=== PATIENT | male | born 1990 | race Caucasian/White ===

== ENCOUNTER 2019-11-20 04:31 | Emergency (ER) | payer SELFPAY ==
[2019-11-20] MEDS ORDERED: Naloxone 0.4 MG/ML SDV IVPUSH ONE (04:53)
--- NOTE | 2019-11-20 04:54 | EDM.PDOCBH ---
<Anjum Armando - Last Filed: 11/20/19 06:30> ED HPI GENERAL MEDICAL PROBLEM - General Chief Complaint: Drug or Alcohol Abuse Stated Complaint: [facility] Time Seen by Provider: 11/20/19 04:35 Source of Information: Reports: EMS History Limitations: Reports: Altered Mental Status, Intoxication - History of Present Illness INITIAL COMMENTS - FREE TEXT/NARRATIVE: 29-year-old male brought in by EMS because of unresponsiveness, [place] that he collapsed and was unarousable. He tries to answer questions, he does understand because he shakes yes and no but he will not cooperate. He appears to have a sunburn or rash on his lower extremities and seemed uncomfortable and itchy so they gave him 25 mg of IV Benadryl in route to the hospital. They did check a glucose and it was over 200. 500 cc bolus of fluid was given, no other treatment so far. There is no outward evidence of trauma. Onset: Unknown/Unsure - Related Data Allergies Allergy/AdvReac Type Severity Reaction Status Date / Time No Known Allergies Allergy Verified 11/20/19 04:58 Home Meds: Home Meds NK [No Known Home Meds] 11/20/19 [History] Social & Family History - Tobacco Use Smoking Status *Q: Unknown Ever Smoked ED ROS GENERAL - Review of Systems Review Of Systems: See Below Reason Not Obtained: Patient is too intoxicated to answer questions or cooperate ED EXAM, BEHAVIORAL HEALTH - Physical Exam Exam: See Below Exam Limited By: Altered Mental Status General Appearance: Lethargic Eye Exam: Bilateral Eye: PERRL (Pupils are pinpoint bilaterally, equal) Head: Atraumatic Respiratory/Chest: No Respiratory Distress, Lungs Clear Cardiovascular: Regular Rate, Rhythm Extremities: Other (Blanching erythematous rash on the lower extremities) Neurological: Slow Response to Commands Skin Exam: Warm, Dry, Other (Blanching erythema of the lower extremities) COURSE, BEHAVIORAL HEALTH COMP - Course Re-Assessment/Re-Exam: CBC, BMP and EtOH were obtained, patient was given 0.2 mg of IV Narcan. No response to Narcan. Patient just shook his head no to questions, remains mildly hypotensive but stable. CBC and BMP were relatively normal, EtOH was only 0.131 which really did not explain his profound intoxication so Hernandez catheter was placed to get a UA drug screen. This did however wake him up quite dramatically, during placement of the catheter he started cursing and complaining it hurt. After the urine was attained the catheter was removed because he was not tolerating it and he passed out again. Urine drug screen was ordered. Urine drug screen was positive for amphetamine, methamphetamine and MDMA. His family arrived and said that he has "lost 3 friends lately" and has been depressed, acetaminophen and salicylate levels were added. Salicylate was 1.2 which is negligible, acetaminophen 0. Patient continued sleeping, stable. Care will be turned over to Dr. Null to be monitored while the drugs wear off. Departure - Departure Disposition: Home, Self-Care 01 Clinical Impression: Substance abuse - Discharge Information Instructions: Substance Use Disorder Referrals: PCP,None [Primary Care Provider] - Forms: ED Department Discharge Additional Instructions: We recommend that you seek treatment for your drug use. Sepsis Event Note (ED) - Evaluation Sepsis Screening Result: No Definite Risk <Ruperto Null - Last Filed: 11/20/19 11:22> COURSE, BEHAVIORAL HEALTH COMP - Course Vital Signs: Last Vital Signs Temp 35.8 C L 11/20/19 08:31 Pulse 68 11/20/19 11:13 Resp 16 11/20/19 11:13 BP 110/74 11/20/19 11:13 Pulse Ox 98 11/20/19 05:01 Orders, Labs, Meds: Active Orders 24 hr Category Date Time Status Sodium Chloride 0.9% [Normal Saline] 1,000 ml Med 11/20/19 05:15 Active IV ASDIRECTED Medication Orders Sodium Chloride (Normal Saline) 1,000 mls @ 1,000 mls/hr IV ASDIRECTED ALTON Last Admin: 11/20/19 05:11 Dose: 1,000 mls/hr Documented by: [id number] Laboratory Tests 11/20/19 11/20/19 11/20/19 Range/Units 04:55 04:55 04:55 WBC 6.8 (4.5-11.0) K/uL RBC 5.15 (4.30-5.90) M/uL Hgb 15.3 H (12.0-15.0) g/dL Hct 46.2 (40.0-54.0) % MCV 90 (80-98) fL MCH 30 (27-31) pg MCHC 33 (32-36) % Plt Count 255 (150-400) K/uL Neut % (Auto) 58 (36-66) % Lymph % (Auto) 30 (24-44) % [place] % (Auto) 8 H (2-6) % Eos % (Auto) 4 (2-4) % Baso % (Auto) 0 (0-1) % Sodium 144 (140-148) mmol/L Potassium 3.5 L (3.6-5.2) mmol/L Chloride 108 (100-108) mmol/L Carbon Dioxide 24 (21-32) mmol/L Anion Gap 15.5 H (5.0-14.0) mmol/L BUN 12 (7-18) mg/dL Creatinine 0.9 (0.8-1.3) mg/dL Est Cr Clr Drug Dosing 127.30 mL/min Estimated GFR (MDRD) > 60 (>60) Glucose 90 (74-106) mg/dL Calcium 7.9 L (8.5-10.1) mg/dL Salicylates (2.0-20.0) mg/dL Urine Opiates Screen (NEGATIVE) Ur Oxycodone Screen (NEGATIVE) Urine Methadone Screen (NEGATIVE) Ur Propoxyphene Screen (NEGATIVE) Acetaminophen (10.0-30.0) ug/mL Ur Barbiturates Screen (NEGATIVE) Ur Tricyclics Screen (NEGATIVE) Ur Phencyclidine Scrn (NEGATIVE) Ur Amphetamine Screen (NEGATIVE) U Methamphetamines Scrn (NEGATIVE) Urine MDMA Screen (NEGATIVE) U Benzodiazepines Scrn (NEGATIVE) U Cocaine Metab Screen (NEGATIVE) U Marijuana (THC) Screen (NEGATIVE) Ethyl Alcohol 131 mg/dL 11/20/19 11/20/19 11/20/19 Range/Units 05:35 05:56 05:56 WBC (4.5-11.0) K/uL RBC (4.30-5.90) M/uL Hgb (12.0-15.0) g/dL Hct (40.0-54.0) % MCV (80-98) fL MCH (27-31) pg MCHC (32-36) % Plt Count (150-400) K/uL Neut % (Auto) (36-66) % Lymph % (Auto) (24-44) % [place] % (Auto) (2-6) % Eos % (Auto) (2-4) % Baso % (Auto) (0-1) % Sodium (140-148) mmol/L Potassium (3.6-5.2) mmol/L Chloride (100-108) mmol/L Carbon Dioxide (21-32) mmol/L Anion Gap (5.0-14.0) mmol/L BUN (7-18) mg/dL Creatinine (0.8-1.3) mg/dL Est Cr Clr Drug Dosing mL/min Estimated GFR (MDRD) (>60) Glucose (74-106) mg/dL Calcium (8.5-10.1) mg/dL Salicylates 1.2 L (2.0-20.0) mg/dL Urine Opiates Screen Negative (NEGATIVE) Ur Oxycodone Screen Negative (NEGATIVE) Urine Methadone Screen Negative (NEGATIVE) Ur Propoxyphene Screen Negative (NEGATIVE) Acetaminophen 0.0 L (10.0-30.0) ug/mL Ur Barbiturates Screen Negative (NEGATIVE) Ur Tricyclics Screen Negative (NEGATIVE) Ur Phencyclidine Scrn Negative (NEGATIVE) Ur Amphetamine Screen Presumptive positive H (NEGATIVE) U Methamphetamines Scrn Presumptive positive H (NEGATIVE) Urine MDMA Screen Presumptive positive H (NEGATIVE) U Benzodiazepines Scrn Negative (NEGATIVE) U Cocaine Metab Screen Negative (NEGATIVE) U Marijuana (THC) Screen Negative (NEGATIVE) Ethyl Alcohol mg/dL Medications Generic Name Dose Route Start Last Admin Trade Name Freq PRN Reason Stop Dose Admin Sodium Chloride 1,000 mls @ 1,000 mls/hr 11/20/19 05:15 11/20/19 05:11 Normal Saline IV 1,000 mls/hr ASDIRECTED ALTON Administration Discontinued Medications Generic Name Dose Route Start Last Admin Trade Name Freq PRN Reason Stop Dose Admin Naloxone HCl 0.2 mg 11/20/19 04:53 11/20/19 04:58 Narcan IVPUSH 11/20/19 04:54 0.2 mg ONETIME ONE Administration Medical Clearance: Re-evaluated, mental status cleared appropriately. Admits to drug use. Safe for discharge 11/20/19 11:21 Departure - Departure Time of Disposition: 11:20 Sepsis Event Note (ED) - Focused Exam Vital Signs: Vital Signs Temp Pulse Resp BP Pulse Ox 11/20/19 11:13 68 16 110/74 08/24/20 08:31 35.8 C L 67 101/58 L 11/20/19 07:15 81 16 97/47 L 11/20/19 05:01 74 16 90/44 L 98 11/20/19 04:34 36.1 C 78 16 97/51 L 99
[2019-11-20] MEDS ORDERED: Sodium Chloride 0.9% 1,000 ML IV SCH (05:15)
== END 2019-11-20 12:23 | disposition home or self-care (01) ==
LOC: JP.ED 04:31
DX: F15.10 Other stimulant abuse, uncomplicated (principal); R41.82 Altered mental status, unspecified
CPT/HCPCS: 36415; 80048; 80305; 80307; 85025; 96361; 96374; 99284; J2310; J7030